=== PATIENT | female | born 1985 | race Caucasian/White ===

== ENCOUNTER 2020-12-29 10:38 | Emergency (ER) | payer MEDICAID, SELFPAY ==
--- NOTE | 2020-12-29 10:41 | ED.SOB ---
HPI - SOB/Dyspnea General Chief Complaint: Asthma Stated Complaint: asthma Time Seen by Provider: 12/29/20 10:41 Source: patient Mode of arrival: EMS Limitations: no limitations History of Present Illness HPI Narrative: Increased shortness of breath with history of asthma. Given 40mg of prednisone by walkin clinic. EMS gave a duoneb with improvement. MD elicited complaint: shortness of breath and asthma attack Pertinent past history: asthma Onset (ago): hour(s) Severity: moderate Known history of: asthma Associated symptoms: denies other symptoms Related Data Previous Rx's Medication Instructions Recorded prednisone 20 mg tablet 20 mg PO DAILY #12 tab 12/29/20 Allergies Allergy/AdvReac Type Severity Reaction Status Date / Time ciprofloxacin [From CIPRO] Allergy Unknown BREAK Unverified 11/04/19 15:38 THROUGH BLEEDING VAGINALLY procaine [From Novocain] AdvReac Unknown Doesn't Unverified 11/04/19 15:38 work Novocain Allergy Unknown Uncoded 01/29/18 00:00 Review of Systems Constitutional: Constitutional: Reports no additional constitutional complaints Eyes: Eyes: Reports no additional eye complaints ENT: Denies dizziness Cardiovascular: Cardiovascular: Reports no additional cardiovascular complaints Respiratory: Respiratory: Reports as per HPI Gastrointestinal: Gastrointestinal: Reports no additional gastrointestinal complaints Genitourinary: Genitourinary: Reports no additional female genitourinary complaints Musculoskeletal: Musculoskeletal: Reports no additional musculoskeletal complaints Integumentary/Breasts: Skin/Breast: Denies rash Neurologic: Reports system reviewed and no additional complaints, except as documented, Denies dizziness and Denies Sensory deficit (Neuro) Psychiatric: Psychiatric: Denies anxiety PMFSH Social History Social History Patient Tobacco Use Status: Current everyday Tobacco user Use of substances other than those prescribed or required for medical reasons: No Advance Directives: No Advance Directives Information Provided: No Patient : No Physical Exam Vital Signs: Vital Signs: Last Vital Signs Temp 97.1 F 12/29/20 10:44 Pulse 71 12/29/20 10:44 Resp 16 12/29/20 10:44 BP 105/73 12/29/20 10:44 Pulse Ox 100 12/29/20 10:44 Body Mass Index 23.0 Const: Other: short of breath, retracting on duoneb from EMS Nutritional Appearance: average body habitus Orientation/consciousness: oriented to person and patient oriented x3 Limitations: no limitations HENMT: Head: Yes normal to inspection Ears: external ears normal General nose exam: Normal external nose present Mouth: Normal oral and palatal mucosa present and oropharynx normal Throat: Yes posterior oropharynx normal Eyes: General: appearance normal, both eyes and all related structures Neck: Other: supple Neck: Yes normal visual inspection Chest: Chest palpation & inspection: normal inspection of the chest Resp: Other: patient with slight retractions, moving good air, diffuse wheeze Cardio: Jugular venous distension: no JVD Rate: regular rate Rhythm: regular rhythm Heart sounds: S1 normal heart sound present and S2 normal heart sound present GI: Inspection: Yes normal to inspection Palpation (GI): Soft to palpation, nontender and No hepatosplenomegaly present Auscultation: normal bowel sounds : General: Yes no CVA tenderness Back/Spine/Pelvis: Back: no CVA tenderness Skin: General skin exam: no rashes or lesions noted Neuro: General: oriented to person and patient oriented x3 Cranial nerves: Yes CN's II-XII intact bilaterally Motor exam (neuro): 5/5 motor strength present throughout Sensory Exam: No Sensory deficit (Neuro) Extrem: General: Yes normal to inspection Psych: Appearance: grossly normal Course Reevaluation(s) Reevaluation #1: lungs clear, no wheezing, COVID negative will place on prednisone for 4 more days Time: 13:40 MDM - SOB/Dyspnea Lab Data Labs: Lab Results 12/29/20 Range/Units Unknown Influenza Type A (PCR) NEGATIVE (Negative) Influenza Type B (PCR) NEGATIVE (Negative) RSV RNA Qual (PCR) NEGATIVE (Negative) SARS-CoV-2 RNA (RT-PCR) NEGATIVE (Negative) Discharge Plan Discharge Clinical Impression: Asthma with acute exacerbation Qualifiers: Asthma severity: moderate Asthma persistence: unspecified Qualified Code(s): J45.901 - Unspecified asthma with (acute) exacerbation Patient Disposition: Home, Self-Care Instructions: Asthma (ED) Prescriptions: New prednisone 20 mg tablet 20 mg PO DAILY Qty: 12 RF: 0 Referrals: Jose Wang MD [Primary Care Provider] - 1 week
[2020-12-29 10:44] VITALS: BP 105/73; BP 129/79; PULSE 71; RESP 16; TEMP 36.2; O2SAT 100; O2SAT 96; BMI 23.0
[2020-12-29] MEDS: predniSONE 20 MG TABLET PO (11:09)
[2020-12-29 12:47] LABS: Influenza A PCR NEGATIVE (Negative); Influenza B PCR NEGATIVE (Negative); Resp Syncy Virus RNA Qual PCR NEGATIVE (Negative); SARS COV2 PCR INHOUSE NEGATIVE (Negative)
== END 2020-12-29 13:54 | disposition home or self-care (01) ==
PROVIDERS: Emergency Provider Emergency Medicine; PCP Internal Medicine
DX: J45.901 Unspecified asthma with (acute) exacerbation (principal); Z20.822 Contact with and (suspected) exposure to COVID-19
CPT/HCPCS: 0241U; 36415; 99283; 99284

== ENCOUNTER 2023-08-20 15:14 | Outpatient (REF) | payer MEDICAID, SELFPAY ==
[2023-08-20 16:06] LABS: MANUAL DIFF FLAG NO
[2023-08-20 16:15] LABS: Basophils Absolute Auto 0.1 X10*3/uL (0.0-0.2); Basophils Percent Auto 0.8 % (0-2); Eosinophils Absolute Auto 0.3 X10*3/uL (0.0-0.4); Eosinophils Percent Auto 2.7 % (0-4); Hematocrit 41.1 % (37.0-47.0); Hemoglobin 13.8 g/dl (12.0-16.0); Imm Gran Abs Auto 0.03 X10*3/uL (0.00-0.03); Imm Gran Pct Auto 0.3 % (0.0-0.4); Lymphocytes Absolute Auto 2.3 X10*3/uL (1.2-4.9); Lymphocytes Percent Auto 23.2 % (20-40); Mean Corpuscular HGB Conc 33.6 g/dl (31.0-35.0); Mean Corpuscular Hemoglobin 29.6 pg (27.0-33.0); Mean Platelet Volume 10.8 fL (9.4-12.3); Monocytes Absolute Auto 0.8 X10*3/uL (0.1-1.2); Monocytes Percent Auto 8.4 % (2-11); Neutrophils Absolute Auto 6.4 x10*3/uL (2.0-8.3); Neutrophils Percent Auto 64.6 % (45-73); Platelet Count 260 X10*3/uL (160-400); Red Blood Count 4.67 X10*6/uL (4.20-5.50); White Blood Count 9.9 X10*3/uL (4.8-10.8)
[2023-08-20 16:35] LABS: Alanine Aminotransferase 14 U/L (0-31); Albumin Level 4.4 g/dL (3.5-5.0); Alkaline Phosphatase 60 U/L (39-117); Anion Gap 9 (12-20); Aspartate Amino Transferase 13 U/L (5-31); Bilirubin Total 0.3 mg/dL (0.0-1.0); Blood Urea Nitrogen 10 mg/dL (9-16); Calcium 9.3 mg/dL (8.4-10.2); Carbon Dioxide 25 mmol/L (22-29); Chloride 109 mmol/L (96-108); Cholesterol 152 mg/dL (<200); Estimated Glomerular Filt Rate > 60; Glucose Random 74 mg/dL (60-115); HDL Cholesterol 49 mg/dL (>40); LDL Cholesterol Calculated 93 mg/dL (<100); Sodium 139 mmol/L (135-145); Triglycerides 50 mg/dL (<150)
[2023-08-20 16:37] LABS: Estimated Average Glucose 105 mg/dL; Hemoglobin A1C 123.8149 umol/L; Hemoglobin A1c % 5.3 % (<6.0)
[2023-08-20 16:56] LABS: Reflex LDLD? No
[2023-08-22 03:55] LABS: HIV AB/AG Nonreactive (Nonreactive); HIV Num 1 0.05 S/CO (0.00-0.99)
== END 2023-08-20 15:15 | disposition home or self-care (01) ==
LOC: HO.HHCL 15:14
PROVIDERS: Visit Provider Internal Medicine
DX: Z00.00 Encounter for general adult medical examination without abnormal findings (principal); Z11.4 Encounter for screening for human immunodeficiency virus [HIV]
CPT/HCPCS: 36415; 80053; 80061; 83036; 85025; 87389